=== PATIENT | female | born 1940 | race Hispanic/Latino ===

== ENCOUNTER 2024-04-10 05:54 | Day surgery (SDC) | payer OTHER ==
[2024-04-10] VITALS (11 sets, daily range): BP systolic 95–138; BP diastolic 40–59; PULSE 59–70; RESP 14–18; TEMP 97.1–97.8
[~2024-04-10] VITALS: Ht 149.9 cm; Wt 74.8 kg
[~2024-04-10 05:54] MED LIST: ARFO15VI20 IH; ATOR40TA69 PO; AZEL137S11 NS; CETI10TA57 PO; DICY10CA2 PO; ESLI600T PO; ESOM40CA PO; FLUT16H NS; LEVE750T4 PO; MONT-39 PO; PANT40TA54 PO; REVE175V IH; SERT-439 PO; TRAZ-187 PO
[2024-04-10] MEDS: 0.9%NACL 1000ML 1,000 ML IV ONE (06:39)
[2024-04-10] MEDS ORDERED: LIDOCAINE HCL 1% 20 ML VIAL ONE (07:06)
[2024-04-10] MEDS ORDERED: proPOFol 10 MG/ML 20ML VIAL IV ONE (07:06)
== END 2024-04-10 08:10 | disposition home or self-care (01) ==
LOC: ENDO 05:54 → DAH 05:54 → ENDO 08:10
PROVIDERS: ATTEND Internal Medicine Gastroenterology
DX: R12 Heartburn (principal); K44.0 Diaphragmatic hernia with obstruction, without gangrene; K29.70 Gastritis, unspecified, without bleeding; K44.9 Diaphragmatic hernia without obstruction or gangrene; K21.9 Gastro-esophageal reflux disease without esophagitis; J44.9 Chronic obstructive pulmonary disease, unspecified; E03.9 Hypothyroidism, unspecified; F41.9 Anxiety disorder, unspecified; M19.90 Unspecified osteoarthritis, unspecified site; Z90.49 Acquired absence of other specified parts of digestive tract; Z98.890 Other specified postprocedural states; G40.909 Epilepsy, unspecified, not intractable, without status epilepticus; Z98.42 Cataract extraction status, left eye; Z98.41 Cataract extraction status, right eye; Z95.0 Presence of cardiac pacemaker; Z79.899 Other long term (current) drug therapy
CPT/HCPCS: 43239; J7030; J2704; A4615; A4215 ×2; A4223; A4222; A4221; A4663; A4606; J3490